=== PATIENT | male | born 1970 | race Caucasian/White ===

== ENCOUNTER 2019-06-05 13:03 | Emergency (ER) | payer OTHER ==
[~2019-06-05] VITALS: Ht 182.9 cm; Wt 80.7 kg
[2019-06-05] MEDS ORDERED: DOLOGEN CAPLET1 EACH PO (18:02)
[2019-06-05] MEDS ORDERED: XOFLUZA40 MG PO (18:02)
[2019-06-05] MEDS ORDERED: TUSNEL LIQUID178 ML PO (18:02)
== END 2019-06-05 18:10 | disposition home or self-care (01) ==
LOC: ER 13:03
DX: B34.9 Viral infection, unspecified (principal); J09.X2 Influenza due to identified novel influenza A virus with other respiratory manifestations

== ENCOUNTER 2019-06-09 17:07 | Emergency (ER) | payer OTHER ==
[~2019-06-09] VITALS: Ht 182.9 cm; Wt 80.7 kg
[~2019-06-09 17:07] MED LIST: DOLOGEN CAPLET1 EACH PO; TUSNEL LIQUID178 ML PO; XOFLUZA40 MG PO
[2019-06-09] MEDS ORDERED: ATIVAN0.5 M1 PO (18:29)
== END 2019-06-09 18:38 | disposition home or self-care (01) ==
LOC: ER 17:07
DX: R07.89 Other chest pain (principal); F41.8 Other specified anxiety disorders